=== PATIENT | male | born 1950 | race Caucasian/White ===

== ENCOUNTER 2016-08-06 09:20 | Outpatient (CLI) | payer BC ==
[2016-08-06 13:02] LABS: Hemoglobin A1c 7.5 % (4.0-6.0)
== END 2016-08-06 09:21 | disposition home or self-care (01) ==
LOC: NAVSJIPCSP 09:20
PROVIDERS: ATTEND Internal Medicine
DX: E78.5 Hyperlipidemia, unspecified (principal); E11.40 Type 2 diabetes mellitus with diabetic neuropathy, unspecified
CPT/HCPCS: 36415; 80061; 83036

== ENCOUNTER 2016-11-04 10:13 | Outpatient (CLI) | payer BC ==
[2016-11-04 13:02] LABS: Hemoglobin A1c 7.6 % (4.0-6.0)
[2016-11-04 13:39] LABS: Cardiac Risk 2.9 (Less than 4.5)
== END 2016-11-04 10:14 | disposition home or self-care (01) ==
LOC: NAVSJIPCSP 10:13
PROVIDERS: ATTEND Internal Medicine
DX: E78.5 Hyperlipidemia, unspecified (principal); E11.40 Type 2 diabetes mellitus with diabetic neuropathy, unspecified
CPT/HCPCS: 36415; 80061; 83036

== ENCOUNTER 2017-02-05 08:58 | Outpatient (CLI) | payer BC ==
[2017-02-05 12:39] LABS: #Basophils 0.1 thou/uL (0.0-0.2); #Eosinphils 0.1 thou/uL (0.0-0.7); #Monocytes 0.3 thou/uL (0.11-0.59); %Basophils 1.1 % (0.0-1.0); %Eosinophils 1.5 % (0.0-10.0); %Lymphocytes 30.5 % (21.0-51.0); %Monocytes 5.1 % (0.0-10.0); %Neutrophils 61.9 % (42.0-75.0); Mean Corpuscular Hemoglobin 29.9 pg (27.0-31.0); Mean Corpuscular Volume 93.5 fl (80.0-94.0); Mean Platelet Volume 6.7 fL (7.4-10.4); Platelet Count 243 thou/uL (130-400); RBC Distribution Width 13.4 % (11.5-14.5); Red Blood Cell (RBC) Count 4.34 mill/uL (4.70-6.10); White Blood Cell (WBC) Count 6.4 thou/uL (4.8-10.8)
[2017-02-05 13:01] LABS: Hemoglobin A1c 8.5 % (4.0-6.0)
[2017-02-05 13:31] LABS: ALT (SGPT) 32 U/L (8-55); AST (SGOT) 21 U/L (5-34); Alkaline Phosphatase 73 U/L (40-150); Anion Gap 18 mmol/L (10-20); BUN (Urea Nitrogen) 23 mg/dL (8.4-25.7); Bilirubin, Total 0.2 mg/dL (0.2-1.2); Calc. Creatinine Clearance 0 mL/min (70-130); Calcium 9.3 mg/dL (7.8-10.44); Carbon Dioxide 20 mmol/L (23-31); Cardiac Risk 3.6 (Less than 4.5); Chloride 110 mmol/L (98-107); Cholesterol 139 mg/dl (< 200 Desired); Estimated GFR-MDRD 54; Globulin 2.8 g/dL (2.4-3.5); Glucose 236 mg/dL (80-115); HDL Cholesterol 39 mg/dL (>60 Neg Risk); LDL Cholesterol, Calculated 55 mg/dL; Potassium 4.5 mmol/L (3.5-5.1); Protein, Total 6.8 g/dL (5.8-8.1); Sodium 143 mmol/L (136-145); Triglycerides 226 mg/dL (Less than 150)
[2017-02-05 18:32] LABS: Creatinine, Urine 144.67 mg/dL (63-166); Microalbumin Urine 9.2 mg/dL (0.5-50.0); Microalbumin/Creat Ratio 63.6 mg/g (Less than 30)
== END 2017-02-05 08:59 | disposition home or self-care (01) ==
LOC: NAVSJIPCSP 08:58
PROVIDERS: ATTEND Internal Medicine
DX: Z12.11 Encounter for screening for malignant neoplasm of colon (principal); Z12.5 Encounter for screening for malignant neoplasm of prostate; E78.5 Hyperlipidemia, unspecified; I11.9 Hypertensive heart disease without heart failure; E11.40 Type 2 diabetes mellitus with diabetic neuropathy, unspecified; Z79.899 Other long term (current) drug therapy
CPT/HCPCS: 36415; 80053; 80061; 82043; 83036; 85025; G0103

== ENCOUNTER 2017-02-06 18:19 | Outpatient (CLI) | payer BC | END 2017-02-06 18:20 | disposition home or self-care (01) | LOC: NAV LABSP 18:19 | PROVIDERS: ATTEND Internal Medicine | DX: Z12.5 Encounter for screening for malignant neoplasm of prostate (principal); Z12.11 Encounter for screening for malignant neoplasm of colon; E11.40 Type 2 diabetes mellitus with diabetic neuropathy, unspecified; I11.9 Hypertensive heart disease without heart failure; Z79.899 Other long term (current) drug therapy | CPT/HCPCS: 82274 ==